=== PATIENT | male | born 1950 | race Caucasian/White ===

== ENCOUNTER 2019-09-26 22:11 | Emergency (ER) | payer MEDICARE, SELFPAY ==
[2019-09-26 22:29] VITALS: BP 213/103; PULSE 65; RESP 18; TEMP 36.6; O2SAT 95; BMI 26.4
--- NOTE | 2019-09-26 22:43 | ECG_ITS ---
Measurements Intervals [place] Rate: 64 P: 52 MD: 140 QRS: -34 QRSD: 99 T: 39 QT: 420 QTc: 435 SINUS RHYTHM LEFT AXIS DEVIATION [QRS AXIS < -30] PATTERN CONSISTENT WITH PULMONARY DISEASE No previous ECG available for comparison Electronically Signed On 09-27-2019 16:19:04 CDT by Milena Molina M.D. [email or web address]
--- NOTE | 2019-09-26 22:43 | XRR_ITS ---
PROCEDURE INFORMATION: Exam: XR Chest, 1 View Exam date and time: 09/26/2019 11:36 PM Age: 69 years old Clinical indication: Other: Elevated blood pressure; Additional info: Elevated BP TECHNIQUE: Imaging protocol: XR of the chest Views: 1 view. COMPARISON: No relevant prior studies available. FINDINGS: Lungs: No CHF/pulmonary edema. Visible lungs appear essentially clear. Pleural space: No visible pneumothorax. No definite pleural fluid. Heart/Mediastinum: Heart size is within normal limits. Vasculature: Mild to moderate aortic tortuosity. Bones/joints: No significant acute finding. XR/XR chest 1V portable [id number] IMPRESSION: 1. No CHF or pneumonia. 2. Other findings discussed above.
--- NOTE | 2019-09-26 22:45 | ED_ITS ---
HPI - General Adult General: Chief complaint: General Medical Stated complaint: high bp Time Seen by Provider: 09/26/19 22:43 History of Present Illness: HPI narrative: Patient is a 69-year-old male who comes into the ED with elevated blood pressure. Patient has a past medical history of hypertension, hypercholesterolemia, palpitations, sinoatrial node dysfunction and atypical chest pain patient states he started having symptoms of a headache and diaphoresis and he checked his blood pressure at home and it was approximately 198/105. While here in the ED patient says headache and diaphoresis has improved and he is feeling better currently. Patient states that his PCP just recently reduced his benazepril blood pressure medication on Sunday. He denies any neurological symptoms such as vision changes, trouble speaking, numbness or tingling to the face or weakness to face, numbness tingling or weakness to extremities. Denies any chest pain, shortness of breath, nausea/vomiting, bladder or bowel symptoms. Associated symptoms: Reports diaphoresis and headache(s); Deny chest pain, dyspnea, nausea, rash, palpitations or vomiting Review of Systems Narrative: Patient complaining of headache diaphoresis and elevated blood pressure. Const: Reports: diaphoresis; Denies: fever(s), chills or fatigue Eyes: Denies: change in vision or eye discomfort ENMT: Denies: throat pain, odynophagia, nasal discharge or nasal congestion Card: Denies: chest pain, palpitations, edema, swelling of feet/ankles, dyspnea on exertion or orthopnea Resp: Denies: dyspnea, productive cough or non-productive cough GI: Denies: abdominal pain, nausea, vomiting, diarrhea, constipation or hematochezia : Denies: flank pain, difficulty urinating, dysuria or hematuria Musc: Denies: neck pain, back pain or extremity swelling Skin/Breast: Denies: rash or new lesions Neuro: Reports: headache(s); Denies: numbness in extremities or weakness in extremities PFSH ED PFSH: Medical History Atypical chest pain Benign essential HTN Diastolic congestive heart failure LVEF 68%, grade 2 diastolic dysfunction 06/30/2016 Erectile dysfunction HTN (hypertension) Hypercholesterolemia Mild concentric left ventricular hypertrophy (LVH) last echocardiogram 06/30/2016 Mild tricuspid regurgitation by prior echocardiogram 06/30/2016 Palpitations last Holter monitor 08/06/16- min HR 41, max HR 112, 1 PVC, 5 PAC, 1 couplet Prostate cancer Sinoatrial node dysfunction Ventricular arrhythmia Family History Father Cancer Mother CAD (coronary artery disease) Other Diabetes Hypertension Social History Smoking and tobacco status: never smoked Alcohol intake: current Alcohol intake frequency: holidays/special occasions only Physical Exam Const: COMMON NORMALS: no acute distress, patient oriented x3, healthy appearing and alert GENERAL APPEARANCE: cooperative and comfortable; not in distress HENMT: COMMON NORMALS: normocephalic HEAD & SCALP: normocephalic MOUTH: Normal oral and palatal mucosa present THROAT: posterior oropharynx normal and uvula midline Eye: COMMON NORMALS: Equal, round and reactive pupils present, EOMs intact bilaterally, conjunctivae normal and normal visual field by confrontation CONJUNCTIVA: Yes conjunctivae normal PUPIL: Yes Equal, round and reactive pupils present Neck/C-Spine: COMMON NORMALS: supple GENERAL: Yes normal visual inspection Resp: COMMON NORMALS: normal respiratory effort, No retractions, No use of accessory muscles and clear to auscultation bilaterally AUSCULTATION: clear to auscultation bilaterally Cardio: COMMON NORMALS: regular rate, regular rhythm, S1 normal heart sound present, S2 normal heart sound present, No gallops present (Cardio), No clicks present (Cardio), No murmurs present (Cardio) and Peripheral pulses 2+ throughout RATE: regular rate RHYTHM: regular rhythm HEART SOUNDS: S1 normal heart sound present and S2 normal heart sound present PERIPHERAL PULSES: Peripheral pulses 2+ throughout GI: COMMON NORMALS: Normal to inspection, nondistended, normoactive bowel sounds present, Soft to palpation, non-tender and no masses PALPATION: Yes Soft to palpation : COMMON NORMALS: Yes no CVA tenderness BLADDER/KIDNEY EXAM: Yes no CVA tenderness Back/Pelvis: COMMON NORMALS: no CVA tenderness Extremity: COMMON NORMALS: normal to inspection, capillary refill normal and no pedal edema Neuro: COMMON NORMALS: patient oriented x3, CN's II-XII intact bilaterally, moves all extremities, no focal motor deficits and no sensory deficits noted SENSORIUM/ORIENTATION: Yes alert COORDINATION/BALANCE: [id number] test normal SPEECH: speech normal SENSORY EXAM: Yes extremities (intact) MOTOR EXAM: 5/5 motor strength present throughout COORDINATION: [id number] test normal Skin: COMMON NORMALS: no rashes or lesions noted GENERAL SKIN EXAM: no rashes or lesions noted and dry skin Course Reevaluation(s): Reevaluation #1: Patient still had no symptoms and felt completely normal. He was given hydralazine IV approximately 20 minutes ago. His current blood pressure was 165/95. Patient was ready to be discharged. Time: 01:59 Vital Signs: Vital signs: Vital Signs Temperature 97.8 F 09/26/19 22:29 Pulse Rate 65 09/26/19 23:51 Respiratory Rate 14 09/26/19 23:51 Blood Pressure 172/106 09/26/19 23:51 Pulse Oximetry 100 09/26/19 23:51 MDM - General Adult MDM Narrative: Medical decision making narrative: Patient is a 69-year-old male who comes to the ED with elevated blood pressure. He was also having symptoms of diaphoresis and headache that resolved before coming to the ED. Patient said his PCP reduced his blood pressure medication a couple days ago. Physical exam was unremarkable and neurological exam was normal showing no deficits. CBC CMP and UA were all normal and unremarkable. Chest x-ray showed no acute findings. CT of head showed no acute findings. Patient was given hydralazine while here on the unit and his blood pressure afterwards was 165/95. Patient was discharged and told to check his blood pressures at home at least 2-3 times a day over the weekend. He was also told to call his PCP on Sunday morning to set up a follow-up appointment and to recheck blood pressure. If he continues to have elevated blood pressure through the weekend, I informed patient that he could go back to taking his benazepril dose twice a day instead of just once a day like it is currently. I told patient he can return to ED if he has any worsening symptoms. Patient understood and agreed with plan. Lab Data: Attestation: I reviewed the patient's lab results. Labs: Lab Results 09/26/19 09/26/19 09/26/19 Range/Units 22:54 22:54 22:54 WBC 7.8 (4.0-10.0) 10^3/ uL RBC 5.49 H (4.1-5.3) 10^6/u L Hgb 16.6 (11.7-16.6) g/dL Hct 49.4 (42.0-52.0) % MCV 90.0 (80-94) fL MCH 30.2 (28.0-34.0) pg MCHC 33.6 (30.0-36.0) g/dL RDW 12.5 (12.1-15.1) % Plt Count 252 (130-400) 10^3/c mm MPV 9.7 (7.4-10.4) fL Neut % (Auto) 65.3 % Lymph % (Auto) 21.8 % [place] % (Auto) 8.9 % Eos % (Auto) 3.1 % Baso % (Auto) 0.5 % Neut # (Auto) 5.1 (1.8-7.7) 10^3/u L Lymph # (Auto) 1.7 (0.8-4.8) 10^3/u L [place] # (Auto) 0.7 (0.2-0.9) 10^3/u L Eos # (Auto) 0.2 (0.0-0.8) 10^3/u L Baso # (Auto) 0.0 (0.0-0.1) 10^3/u L Nucleated RBC % (a uto) 0 % Nucleated RBCs # 0.0 /100WBC Sodium 142 (136-145) mmol/L Potassium 3.9 (3.5-5.1) mmol/L Chloride 106 (98-107) mmol/L Carbon Dioxide 27 (22-29) mmol/L Anion Gap 12.9 (5-19) BUN 16 (8-23) mg/dL Creatinine 0.9 (0.7-1.2) mg/dL GFR Calculation 83.9 L (90-130) mL/min Glucose 113 (65-115) mg/dL Calculated Osmolal ity 291 (285-295) mOsm/k g Calcium 9.1 (8.5-10.5) mg/dL Magnesium 2.3 (1.7-2.3) mg/dL Total Bilirubin 0.5 (0.15-1.2) mg/dL AST 27 (0-40) U/L ALT 35 (0-41) U/L Alkaline Phosphata se 85 (40-130) IU/L Troponin T Baselin e 7 (0-15) ng/mL Troponin T 120 Min [place] (0-15) ng/mL Delta Troponin T (0-10) ABS# NT-Pro-B Natriuret Pep 105 (0-125) pg/mL Total Protein 6.5 L (6.6-8.7) g/dL Albumin 4.5 (3.5-5.2) g/dL Globulin 2.0 (1.3-4.6) g/dL TSH 2.47 (0.27-4.20) uIU/ mL Urine Color (Yellow) Urine Appearance (CLEAR) Urine pH (5-7) Ur Specific Gravit y (1.005-1.030) Urine Protein (Negative) Urine Glucose (UA) (Normal) Urine Ketones (Negative) Urine Blood (Negative) Urine Nitrate (Negative) Urine Bilirubin (NEGATIVE) Urine Urobilinogen (Negative) mg/dL Ur Leukocyte [place] (Negative) Urine RBC (0-2) /hpf Urine WBC (0-5) /hpf Ur Squamous Epith Cells (0-5) Urine Bacteria (NONE) 09/26/19 09/27/19 Range/Units 23:53 00:55 WBC (4.0-10.0) 10^3/ uL RBC (4.1-5.3) 10^6/u L Hgb (11.7-16.6) g/dL Hct (42.0-52.0) % MCV (80-94) fL MCH (28.0-34.0) pg MCHC (30.0-36.0) g/dL RDW (12.1-15.1) % Plt Count (130-400) 10^3/c mm MPV (7.4-10.4) fL Neut % (Auto) % Lymph % (Auto) % [place] % (Auto) % Eos % (Auto) % Baso % (Auto) % Neut # (Auto) (1.8-7.7) 10^3/u L Lymph # (Auto) (0.8-4.8) 10^3/u L [place] # (Auto) (0.2-0.9) 10^3/u L Eos # (Auto) (0.0-0.8) 10^3/u L Baso # (Auto) (0.0-0.1) 10^3/u L Nucleated RBC % (a uto) % Nucleated RBCs # /100WBC Sodium (136-145) mmol/L Potassium (3.5-5.1) mmol/L Chloride (98-107) mmol/L Carbon Dioxide (22-29) mmol/L Anion Gap (5-19) BUN (8-23) mg/dL Creatinine (0.7-1.2) mg/dL GFR Calculation (90-130) mL/min Glucose (65-115) mg/dL Calculated Osmolal ity (285-295) mOsm/k g Calcium (8.5-10.5) mg/dL Magnesium (1.7-2.3) mg/dL Total Bilirubin (0.15-1.2) mg/dL AST (0-40) U/L ALT (0-41) U/L Alkaline Phosphata se (40-130) IU/L Troponin T Baselin e (0-15) ng/mL Troponin T 120 Min [place] 6.22 (0-15) ng/mL Delta Troponin T -0.78 L (0-10) ABS# NT-Pro-B Natriuret Pep (0-125) pg/mL Total Protein (6.6-8.7) g/dL Albumin (3.5-5.2) g/dL Globulin (1.3-4.6) g/dL TSH (0.27-4.20) uIU/ mL Urine Color Yellow (Yellow) Urine Appearance Clear (CLEAR) Urine pH 7 (5-7) Ur Specific Gravit y 1.010 (1.005-1.030) Urine Protein Neg (Negative) Urine Glucose (UA) Norm (Normal) Urine Ketones Negative (Negative) Urine Blood Neg (Negative) Urine Nitrate Negative (Negative) Urine Bilirubin Neg (NEGATIVE) Urine Urobilinogen Norm (Negative) mg/dL Ur Leukocyte [place] Negative (Negative) Urine RBC Rare (0-2) /hpf Urine WBC Rare (0-5) /hpf Ur Squamous Epith Cells Rare (0-5) Urine Bacteria Trace (NONE) Imaging Data^: CT Head: Attestation: I personally reviewed and interpreted this imaging study as follows: Radiologist's impression: [address] [place] [address] CT Scan Report Signed Patient: Eitan Mendez Unit #: [id number] : 1950 Age/Sex: 69 / M ADM Date: 0 09/26/19 Loc: ER Room/Bed: Attending Dr: Ordering Provider/Ordering MD: Aramis Johnson Date of Service: 09/26/19 Procedure(s): CT head wo con* [id number] Accession Number(s): [id number] Report Number: [id number] PROCEDURE INFORMATION: Exam: CT Head Without Contrast Exam date and time: 09/26/2019 11:16 PM Age: 69 years old Clinical indication: Pain; Headache not specified; Additional info: Elevated BP with headache TECHNIQUE: Imaging protocol: Computed tomography of the head without contrast. Radiation optimization: All CT scans at this facility use at least one of these dose optimization techniques: automated exposure control; mA and/or kV adjustment per patient size (includes targeted exams where dose is matched to clinical indication); or iterative reconstruction. COMPARISON: No relevant prior studies available. RADIATION DOSE METRICS: Total DLP: 872.47 mGy-cm FINDINGS: Brain: No acute intracranial hemorrhage or mass effect. No definite acute infarct by CT. Ventricles: Ventricle size is normal for age. Bones/joints: No definite acute skull fracture. Sinuses: Included paranasal sinuses are essentially clear. Mastoid air cells: No significant acute finding. Vasculature: Vascular calcifications in the internal carotid and vertebral basilar systems. CT/CT head wo con* [id number] IMPRESSION: 1. No acute intracranial hemorrhage or mass effect. 2. Other findings discussed above. Radiation Dose CTDIVOL = (mGy): DLP = 872.47 (mGy-cm) Dictated By: Niraj Valadez MD Signed By: Niraj Valadez MD Signed Date/Time: 09/27/19111 DD/ 9 CXR: Attestation: I personally reviewed and interpreted this imaging study as follows: My impression: No acute findings. Pending final radiology report. EKG Data^: EKG 1: Attestation: I personally reviewed and interpreted this EKG as follows: EKG interpretation date: 09/26/19 Interpretation: Normal sinus rhythm, 64 bpm, P waves present, no ST segment elevation or depression seen. Computer generated interpretation: Head CT 09/26/19 23:15 IMPRESSION: 1. No acute intracranial hemorrhage or mass effect. 2. Other findings discussed above. Radiation Dose CTDIVOL = (mGy): DLP = 872.47 (mGy-cm) Discharge Plan Discharge Patient Disposition: Home, Self-Care Clinical Impression: Hypertensive urgency Condition: Stable Prescriptions: No Action amlodipine 10 mg tablet 10 mg PO DAILY Qty: 30 RF: 5 benazepril 40 mg tablet 40 mg PO DAILY 30 Days Qty: 30 RF: 5 magnesium L-lactate [Magtab] 84 mg tablet extended release 84 mg PO BID 30 Days Qty: 60 RF: 5 tamsulosin 0.4 mg capsule 0.4 mg PO DAILY RF: 0 simvastatin 20 mg tablet 20 mg PO DAILY RF: 0 aspirin [Aspirin Childrens] 81 mg tablet,chewable 81 mg PO DAILY RF: 0 carvedilol 12.5 mg tablet 12.5 mg PO BID Qty: 180 RF: 3 Discharge Orders: Discharge Order (Routine); Ordered 09/27/19 Ordered By: Araims Johnson Referrals: Faye Shen NP [Primary Care Provider] - Discharge Diet: Regular Discharge Activity: Resume usual activity Patient Instructions: Hypertension Activity Restrictions/Additional Instructions: Call your PCP on Sunday morning to set up an appointment to reevaluate blood pressure and discuss medications. Check blood pressure at home 2-3 times a day over the weekend. Per our discussion about your benazepril dose, currently you take 40 mg once daily and I know previously you were taking 50 mg twice daily. If you feel like your blood pressure over the weekend is elevated you can always add an extra dose of benazepril a day so you are taking 40 mg twice a day. 40 mg twice a day would bring it closer to a year previous dose before the recent change. Return to the ED if you are having any worsening symptoms. Coding Level of Care Code ED Clinical Evaluator for Jacinda Lepe Exam Comprehensive
[2019-09-26 23:04] VITALS: BP 193/100; PULSE 64; RESP 14; O2SAT 96
[2019-09-26 23:04] LABS: Basophils % 0.5 %; Eosinophils # 0.2 10^3/uL (0.0-0.8); Eosinophils % 3.1 %; Hematocrit 49.4 % (42.0-52.0); Hemoglobin 16.6 g/dL (11.7-16.6); Lymphocytes # 1.7 10^3/uL (0.8-4.8); Lymphocytes % 21.8 %; Mean Corpuscular HGB Conc 33.6 g/dL (30.0-36.0); Mean Corpuscular Hemoglobin 30.2 pg (28.0-34.0); Mean Platelet Volume 9.7 fL (7.4-10.4); Monocytes # 0.7 10^3/uL (0.2-0.9); Monocytes % 8.9 %; Neutrophils # 5.1 10^3/uL (1.8-7.7); Neutrophils % 65.3 %; Nucleated Red Blood Cells % 0 %; Platelet Count 252 10^3/cmm (130-400); Red Blood Count 5.49 10^6/uL (4.1-5.3); Red Cell Distribution Width 12.5 % (12.1-15.1); White Blood Count 7.8 10^3/uL (4.0-10.0)
--- NOTE | 2019-09-26 23:15 | CTR_ITS ---
PROCEDURE INFORMATION: Exam: CT Head Without Contrast Exam date and time: 09/26/2019 11:16 PM Age: 69 years old Clinical indication: Pain; Headache not specified; Additional info: Elevated BP with headache TECHNIQUE: Imaging protocol: Computed tomography of the head without contrast. Radiation optimization: All CT scans at this facility use at least one of these dose optimization techniques: automated exposure control; mA and/or kV adjustment per patient size (includes targeted exams where dose is matched to clinical indication); or iterative reconstruction. COMPARISON: No relevant prior studies available. RADIATION DOSE METRICS: Total DLP: 872.47 mGy-cm FINDINGS: Brain: No acute intracranial hemorrhage or mass effect. No definite acute infarct by CT. Ventricles: Ventricle size is normal for age. Bones/joints: No definite acute skull fracture. Sinuses: Included paranasal sinuses are essentially clear. Mastoid air cells: No significant acute finding. Vasculature: Vascular calcifications in the internal carotid and vertebral basilar systems. CT/CT head wo con* [id number] IMPRESSION: 1. No acute intracranial hemorrhage or mass effect. 2. Other findings discussed above. Radiation Dose CTDIVOL = (mGy): DLP = 872.47 (mGy-cm)
[2019-09-26 23:28] LABS: Troponin(5th) Baseline 7 ng/mL (0-15)
[2019-09-26 23:37] LABS: Alanine Aminotransferase 35 U/L (0-41); Albumin Level 4.5 g/dL (3.5-5.2); Alkaline Phosphatase 85 IU/L (40-130); Anion Gap 12.9 (5-19); Aspartate Amino Transferase 27 U/L (0-40); Blood Urea Nitrogen 16 mg/dL (8-23); Calcium 9.1 mg/dL (8.5-10.5); Carbon Dioxide 27 mmol/L (22-29); Chloride 106 mmol/L (98-107); Creatinine Clr Calc Pharmacy 85.7604; Glomerular Filtration Rate 83.9 mL/min (90-130); Glucose 113 mg/dL (65-115); Magnesium 2.3 mg/dL (1.7-2.3); NT Pro B Type Natriuretic Pept 105 pg/mL (0-125); Osmolality Calculated 291 mOsm/kg (285-295); Potassium 3.9 mmol/L (3.5-5.1); Sodium 142 mmol/L (136-145); Thyroid Stimulating Hormone 2.47 uIU/mL (0.27-4.20); Total Bilirubin 0.5 mg/dL (0.15-1.2); Total Protein 6.5 g/dL (6.6-8.7)
[2019-09-26 23:51] VITALS: BP 172/106; PULSE 65; RESP 14; O2SAT 100
[2019-09-27 00:17] LABS: Bilirubin Urine Neg (NEGATIVE); Blood Urine Neg (Negative); Glucose Urine UA Norm (Normal); Ketones Urine Negative (Negative); Nitrate Urine Negative (Negative); Protein Urine Neg (Negative); Urine Appearance Clear (CLEAR); Urine Color Yellow (Yellow); pH Urine 7 (5-7)
[2019-09-27 00:18] LABS: Bacteria Urine TRACE; Leukocyte Esterase Urine Negative (Negative); RBC Urine RARE /hpf (0-2); Squamous Epithelial Cell Urine RARE (0-5); Urobilinogen Urine Norm (Negative); WBC Urine RARE /hpf (0-5)
[2019-09-27 01:27] LABS: Troponin 5 2HR 6.22 ng/mL (0-15)
[2019-09-27 01:28] LABS: Troponin 5 2HR Delta -0.78 ABS# (0-10)
[2019-09-27] MEDS: hyDRALAzine 20 mg/mL INJ 1 mL 10 MG IVP (01:30)
[2019-09-27 02:11] VITALS: BP 166/97; PULSE 67; RESP 16; O2SAT 96
== END 2019-09-27 02:13 | disposition home or self-care (01) ==
PROVIDERS: Emergency Provider Physician Assistant; PCP Nurse Practitioner Family
DX: I16.0 Hypertensive urgency (principal); Z79.82 Long term (current) use of aspirin; I11.0 Hypertensive heart disease with heart failure; I50.30 Unspecified diastolic (congestive) heart failure; Z85.46 Personal history of malignant neoplasm of prostate
CPT/HCPCS: 12345; 70450; 71045; 80053; 81001; 83735; 83880; 84443; 84484; 85025; 93005; 96374; 99283; 99284; A9270; J0360

== ENCOUNTER → 2022-01-11 11:48 | Outpatient (BNVA) | payer MEDICARE, SELFPAY | PROVIDERS: PCP Nurse Practitioner Family; Visit Provider Family Medicine | DX: I10 Essential (primary) hypertension (principal); E78.00 Pure hypercholesterolemia, unspecified; M76.62 Achilles tendinitis, left leg; R00.2 Palpitations | CPT/HCPCS: 80053; 80061 ==

== ENCOUNTER → 2022-02-07 14:47 | Outpatient (BNVA) | payer MEDICARE, SELFPAY | PROVIDERS: PCP Family Medicine; Visit Provider Podiatrist Foot & Ankle Surgery | DX: M76.62 Achilles tendinitis, left leg (principal) | CPT/HCPCS: 73630; 99203; 99204 ==

== ENCOUNTER → 2022-04-11 13:32 | Outpatient (BNVA) | payer MEDICARE, SELFPAY | PROVIDERS: PCP Family Medicine; Visit Provider Podiatrist Foot & Ankle Surgery | DX: M76.62 Achilles tendinitis, left leg (principal) | CPT/HCPCS: 99213 ==

== ENCOUNTER → 2022-04-13 10:27 | Outpatient (BNVA) | payer MEDICARE, SELFPAY | PROVIDERS: PCP Family Medicine; Visit Provider Family Medicine | DX: Z12.5 Encounter for screening for malignant neoplasm of prostate (principal); I10 Essential (primary) hypertension; E78.00 Pure hypercholesterolemia, unspecified; R07.89 Other chest pain; I49.9 Cardiac arrhythmia, unspecified; M76.62 Achilles tendinitis, left leg | CPT/HCPCS: G0103 ==

== ENCOUNTER → 2022-04-26 09:32 | Outpatient (BNVA) | payer MEDICARE, SELFPAY | PROVIDERS: PCP Family Medicine; Visit Provider Internal Medicine Cardiovascular Disease | DX: I49.8 Other specified cardiac arrhythmias (principal); I11.0 Hypertensive heart disease with heart failure; I50.30 Unspecified diastolic (congestive) heart failure; R07.89 Other chest pain; E78.00 Pure hypercholesterolemia, unspecified | CPT/HCPCS: 99214 ==

== ENCOUNTER → 2022-10-12 10:34 | Outpatient (BNVA) | payer OTHER, SELFPAY | PROVIDERS: PCP Family Medicine; Visit Provider Family Medicine | DX: I10 Essential (primary) hypertension (principal); E78.00 Pure hypercholesterolemia, unspecified; I49.9 Cardiac arrhythmia, unspecified; R07.89 Other chest pain; N40.0 Benign prostatic hyperplasia without lower urinary tract symptoms | CPT/HCPCS: 80053; 80061 ==

== ENCOUNTER → 2023-04-16 10:23 | Outpatient (BNVA) | payer OTHER, SELFPAY | PROVIDERS: PCP Family Medicine; Visit Provider Family Medicine | DX: Z12.5 Encounter for screening for malignant neoplasm of prostate (principal); E78.00 Pure hypercholesterolemia, unspecified; I10 Essential (primary) hypertension | CPT/HCPCS: 80048; 80061; G0103 ==

== ENCOUNTER → 2024-02-22 12:33 | Outpatient (BNVA) | payer BC, SELFPAY | PROVIDERS: PCP Family Medicine; Visit Provider Family Medicine | DX: R39.9 Unspecified symptoms and signs involving the genitourinary system (principal) | CPT/HCPCS: 81000 ==

== ENCOUNTER → 2024-04-15 13:29 | Outpatient (BNVA) | payer BC, SELFPAY | PROVIDERS: PCP Family Medicine; Visit Provider Family Medicine | DX: Z12.5 Encounter for screening for malignant neoplasm of prostate (principal); I10 Essential (primary) hypertension; N40.0 Benign prostatic hyperplasia without lower urinary tract symptoms; E78.00 Pure hypercholesterolemia, unspecified | CPT/HCPCS: 80053; 80061; G0103 ==

== ENCOUNTER → 2024-05-20 11:28 | Outpatient (BNVA) | payer BC, SELFPAY | PROVIDERS: PCP Family Medicine; Visit Provider Nurse Practitioner Family | DX: I49.5 Sick sinus syndrome (principal); R00.1 Bradycardia, unspecified | CPT/HCPCS: 93005 ==

== ENCOUNTER → 2024-10-21 13:39 | Outpatient (BNVA) | payer BC, SELFPAY | PROVIDERS: PCP Family Medicine; Visit Provider Family Medicine | DX: I10 Essential (primary) hypertension (principal) | CPT/HCPCS: 80048 ==

== ENCOUNTER → 2024-11-24 14:14 | Outpatient (BNVA) | payer MEDICARE, SELFPAY | PROVIDERS: PCP Family Medicine; Visit Provider Internal Medicine Cardiovascular Disease | DX: I49.8 Other specified cardiac arrhythmias (principal); E78.00 Pure hypercholesterolemia, unspecified; R00.2 Palpitations; I49.5 Sick sinus syndrome; I11.0 Hypertensive heart disease with heart failure; I50.30 Unspecified diastolic (congestive) heart failure | CPT/HCPCS: 99214 ==

== ENCOUNTER → 2025-01-27 13:31 | Outpatient (BNVA) | payer MEDICARE, SELFPAY | PROVIDERS: PCP Family Medicine; Visit Provider Family Medicine | DX: Z00.00 Encounter for general adult medical examination without abnormal findings (principal); Z13.1 Encounter for screening for diabetes mellitus; Z12.5 Encounter for screening for malignant neoplasm of prostate; E78.00 Pure hypercholesterolemia, unspecified | CPT/HCPCS: 80053; 80061; G0103 ==